=== PATIENT | female | born 1965 | race Caucasian/White ===

== ENCOUNTER 2016-08-12 22:45 | Emergency (ER) | payer OTHER ==
[~2016-08-12] VITALS: Ht 157.5 cm; Wt 104.1 kg
[~2016-08-12 22:45] MED LIST: CITALOPRAM; DIFLUCAN150 MG PO; MACROBID100 MG PO; NEXIUM
[2016-08-13 07:50] VITALS: BP 131/89
== END 2016-08-13 08:00 | disposition home or self-care (01) ==
LOC: EME 22:45
DX: F32.9 Major depressive disorder, single episode, unspecified (principal); F10.129 Alcohol abuse with intoxication, unspecified; R51 Headache; Y90.8 Blood alcohol level of 240 mg/100 ml or more; F17.200 Nicotine dependence, unspecified, uncomplicated
CPT/HCPCS: 90837; 99281; 99284; G0480

== ENCOUNTER 2017-04-18 14:08 | Emergency (ER) | payer OTHER ==
[~2017-04-18] VITALS: Ht 157.5 cm; Wt 98.4 kg
[2017-04-18 15:25] LABS: MCH 31.1 PG (29.0-34.0); MCV 94.2 FL (83-99); MEAN PLAT.VOLUME 9.8 uM^3 (9.5-12.4); PLATELET COUNT 413 K/uL (156-360); RBC DIS.WIDTH-CV 13.1 % (11.8-14.6); RBC DIS.WIDTH-SD 45.1 % (39-53); RED BLOOD COUNT 5.31 M/uL (3.80-5.20); WHITE BLOOD COUNT 8.5 K/uL (4.1-10.2)
[2017-04-18 15:37] LABS: CHLORIDE 107 mEq/L (99-109); POTASSIUM 3.6 mEq/L (3.7-5.4); SODIUM 142 mEq/L (136-147)
[2017-04-18 15:39] LABS: GLUCOSE 119 mg/dL (70-99)
[2017-04-18 15:40] LABS: ANION GAP 10 MEQ/L (2-14)
[2017-04-18 15:41] LABS: TOTAL BILIRUBIN 0.5 mg/dL (0.0-1.0)
[2017-04-18 15:42] LABS: ALKALINE PHOSPHATASE 85 IU/L (3-129)
[2017-04-18 15:43] LABS: GFR ESTIMATE (CALCULATED) > 59 mL/min/
[2017-04-18 15:44] LABS: UREA NITROGEN (BUN) 17 mg/dL (9-23)
[2017-04-18 15:46] LABS: LIPASE 23 U/L (1.0-51.0)
[2017-04-18 15:54] LABS: QUANTITATIVE HCG < 4.0 MIU/ML
[2017-04-18 17:32] LABS: ADD MIUA? YES; BILIRUBIN NEGATIVE; BLOOD NEGATIVE; COLOR YELLOW ((YELLOW)); GLUCOSE (STRIP) NEGATIVE; KETONES NEGATIVE; LEUKOCYTES NEGATIVE; NITRITE NEGATIVE; PROTEIN (STRIP) NEGATIVE; SPECIFIC GRAVITY 1.023 (1.000-1.030); UROBILINOGEN 0.2 MG/DL (0.2-1.0)
[2017-04-18 17:40] LABS: BACTERIA RARE /HPF; EPITHELIAL CELLS 1+ /HPF; HYALINE CASTS 0-5 /LPF; MUCUS TRACE /LPF; UCUL ADDED? YES
[2017-04-18] MEDS ORDERED: DIFLUCAN150 MG PO (19:23)
[2017-04-18] MEDS ORDERED: KEFLEX500 MG PO (19:23)
[2017-04-18 19:27] VITALS: BP 122/88
== END 2017-04-18 19:28 | disposition home or self-care (01) ==
LOC: EME 14:08
DX: N39.0 Urinary tract infection, site not specified (principal); K21.9 Gastro-esophageal reflux disease without esophagitis; F41.9 Anxiety disorder, unspecified; F32.9 Major depressive disorder, single episode, unspecified; F17.200 Nicotine dependence, unspecified, uncomplicated
CPT/HCPCS: 80053; 81003; 83690; 84702; 85027; 87086; 99281; 99284